=== PATIENT | female | born 1965 | race African-American/Black ===

== ENCOUNTER 2022-06-01 13:05 | Emergency (ER) | payer OTHER ==
[2022-06-01 13:34] VITALS: BP 159/94; PULSE 86; RESP 18; TEMP 99; BMI 26.5
[2022-06-01] MEDS ORDERED: ACETAMINOPHEN 500 MG TABLET (FP) ONE (14:41)
[2022-06-01] MEDS ORDERED: ACETAMINOPHEN 500 MG TABLET (FP) PO ONE (16:53)
== END 2022-06-01 17:45 | disposition home or self-care (01) ==
LOC: FER 13:05
DX: S62.101A Fracture of unspecified carpal bone, right wrist, initial encounter for closed fracture (principal); W19.XXXA Unspecified fall, initial encounter
CPT/HCPCS: 73110-TC-LT-FY; 73110-TC-RT-FY; 99284-25